=== PATIENT | female | born 1990 | race African-American/Black ===

== ENCOUNTER 2020-03-18 16:45 | Emergency (ER) | payer OTHER, SELFPAY ==
--- NOTE | ~2020-03-18 | XR_ITS ---
XR chest 1V portable DATE: 03/18/2020 18:32 INDICATION: Fever. Nausea. TECHNIQUE: Portable AP chest on 03/18/2020 at 1830 hours COMPARISON: 06/10/2015 AP chest FINDINGS: Normal heart size. No hilar or mediastinal enlargement. No pulmonary infiltrate or consolid ation, pleural effusion or pulmonary vascular congestion or pneumothorax. IMPRESSION: No active cardiopulmonary disease Reviewed, dictated and finalized at location A.
[2020-03-18 16:47] VITALS: BP 145/87; PULSE 80; RESP 18; TEMP 37.2; O2SAT 99
--- NOTE | 2020-03-18 18:16 | ED.GENADULT ---
HPI - General Adult General Chief complaint: Fever Stated complaint: body aches, fever Time Seen by Provider: 03/18/20 18:01 Source: patient History of Present Illness HPI narrative: Patient is 29 y/o female complaining fever since yesterday. She states that she has fever up to 104 today. She took Tylenol which helped with her fever. She also has some bodyache. She denies any cough, sorethroat or dysuria. She states that she started to have fever a few days after her started to have a fever. Related Data Home Medications Medication Instructions Recorded Confirmed No Home Medications 03/18/20 03/18/20 Allergies Allergy/AdvReac Type Severity Reaction Status Date / Time No Known Allergies Allergy Verified 03/18/20 16:51 Review of Systems Constitutional: Constitutional: Denies chills, Reports fever(s), Denies headache(s) and Denies weakness Eyes: Eyes: Denies blurry vision ENT: Denies headache(s) and Denies neck pain Cardiovascular: Cardiovascular: Denies chest pain and Denies dyspnea Respiratory: Respiratory: Denies cough and Denies dyspnea Gastrointestinal: Gastrointestinal: Denies abdominal pain, Denies diarrhea, Denies nausea and Denies vomiting Genitourinary: Genitourinary: Denies hematuria and Denies dysuria Musculoskeletal: Musculoskeletal: Reports as per HPI, Denies back pain, Denies neck pain and Reports other (myalgia) Neurologic: Denies headache(s) and Denies weakness Exam Const: General: no acute distress and well developed Orientation/consciousness: oriented to person, oriented to place, oriented to time and patient oriented x3 HENMT: Head: normocephalic Ears: external ears normal General nose exam: Normal external nose present Eyes: General: appearance normal, both eyes and all related structures Conjunctivae: conjunctivae normal Neck: Neck: normal visual inspection and full ROM Chest: Chest palpation & inspection: normal inspection of the chest and no tenderness Resp: Effort & Inspection: normal respiratory effort Auscultation: clear to auscultation bilaterally Cardio: Rate: regular rate Rhythm: regular rhythm GI: GI Palp: No abdominal tenderness and Yes Soft to palpation Skin: General skin exam: normal color and turgor normal Neuro: General: oriented to person, oriented to place, oriented to time and patient oriented x3 Cognition (Neuro): normal cognition Extrem: General: normal to inspection, full ROM and no pedal edema Psych: Appearance: grossly normal Mental Status: mental status grossly normal Affect: normal affect Course Reevaluation(s) Reevaluation #1: Offered patient COVID testing, but patient declined. Date: 03/18/20 Vital Signs Vital signs: Vital Signs Temperature 37.2 C 03/18/20 16:47 Pulse Rate 80 03/18/20 16:47 Respiratory Rate 18 03/18/20 16:47 Blood Pressure 145/87 H 03/18/20 16:47 Pulse Oximetry 99 03/18/20 16:47 Temperature 37.2 C 03/18/20 16:47 Pulse Rate 78 03/18/20 20:03 Respiratory Rate 18 03/18/20 20:03 Blood Pressure 137/82 03/18/20 20:03 Pulse Oximetry 100 03/18/20 20:03 Medical Decision Making Vital Signs Vital Signs: Vital Signs Temperature 37.2 C 03/18/20 16:47 Pulse Rate 80 03/18/20 16:47 Respiratory Rate 18 03/18/20 16:47 Blood Pressure 145/87 H 03/18/20 16:47 Pulse Oximetry 99 03/18/20 16:47 Temperature 37.2 C 03/18/20 16:47 Pulse Rate 78 03/18/20 20:03 Respiratory Rate 18 03/18/20 20:03 Blood Pressure 137/82 03/18/20 20:03 Pulse Oximetry 100 03/18/20 20:03 Lab Data Result diagrams: 03/18/20 18:39 03/18/20 18:39 Labs: Lab Results 03/18/20 03/18/20 03/18/20 Range/Units 18:32 18:39 18:39 WBC 4.0 L (4.5-10.0) K/mm3 RBC 4.30 (4.2-5.4) M/mm3 Hgb 12.5 (12.0-15.0) g/dL Hct 38.4 (37.0-47.0) % MCV 89.3 (80-100) fl MCH 29.1 (26-34) pg MCHC 32.6 (32-36) g/dl RDW 12.4 (11.5-14
[2020-03-18 18:42] LABS: Add Urine Microscopic? YES; Appearance Urine Clear (Clear); Bilirubin Urine Negative (Negative); Blood Urine Negative (Negative); Color Urine Yellow (Yellow); Glucose Urine UA Negative (Negative); Ketones Urine Negative (Negative); Leukocyte Esterase Ur Trace LEU/UL (Negative); Mucus Urine Rare /lpf; Nitrate Urine Negative (Negative); Protein Urine Negative (Negative); RBC Urine 0-2 /hpf (0-2); Specific Grav Ur 1.025 (1.001-1.035); Squamous Epithelial Cell Urine Many /hpf (Few); Urobilinogen Urine Negative mg/dL (<2.0); WBC Urine 0-3 /hpf
[2020-03-18 18:44] LABS: Basophils Percent Auto 0.2 % (0.2-1.2); Eosinophils Percent Auto 0.2 % (0-4.4); Hematocrit 38.4 % (37.0-47.0); Hemoglobin 12.5 g/dL (12.0-15.0); Immature Granulocyte Absolute 0.01 K/mm3 (0.00-0.031); Immature Granulocyte Percent A 0.2 % (0-0.5); Lymphocytes Absolute Auto 0.73 K/mm3 (0.9-3.2); Lymphocytes Percent Auto 18.2 % (18.3-44.2); Mean Corpuscular HGB Conc 32.6 g/dl (32-36); Mean Corpuscular Hemoglobin 29.1 pg (26-34); Mean Corpuscular Volume 89.3 fl (80-100); Mean Platelet Volume 11.1 fl (7.4-10.4); Monocytes Absolute Auto 0.5 K/mm3 (0.1-0.6); Monocytes Percent Auto 12.2 % (2.6-8.5); Neutrophils Absolute Auto 2.8 K/mm3 (1.3-6.7); Platelet Count Result 188 k/mm3 (150-375); Red Cell Distribution Width 12.4 % (11.5-14.5)
[2020-03-18 18:55] LABS: Alanine Aminotransferase 16 U/L (4-35); Albumin Level 4.2 g/dL (3.5-5.1); Alkaline Phosphatase 93 U/L (38-126); Aspartate Amino Transferase 22 U/L (14-36); Bilirubin,Total 0.3 mg/dL (0.2-1.3); Blood Urea Nitrogen 13 mg/dL (7-17); Calcium 8.8 mg/dL (8.4-10.2); Carbon Dioxide 23 mmol/L (22-30); Chloride 105 mmol/L (98-107); Estimated CRCL calculation 101 ml/min; Estimated Glomerular Filt Rate > 60; Glucose 83 mg/dL (65-105); Sodium 138 mmol/L (137-145)
[2020-03-18 20:03] VITALS: BP 137/82; PULSE 78; RESP 18; O2SAT 100
== END 2020-03-18 20:04 | disposition home or self-care (01) ==
PROVIDERS: Emergency Provider Emergency Medicine
DX: R50.9 Fever, unspecified (principal)
CPT/HCPCS: 36415; 71045; 80053; 81001; 81025; 85025; 99283

== ENCOUNTER 2020-03-25 09:42 | Emergency (ER) | payer OTHER, SELFPAY ==
--- NOTE | ~2020-03-25 | XR_ITS ---
EXAMINATION: XR chest 1V portable DATE: 03/25/2020 10:18 INDICATION: Cough and shortness of breath. TECHNIQUE: A single frontal view of the chest was obtained. COMPARISON: Chest single view 03/18/2020, CT abdomen and pelvis 09/11/2018 FINDINGS: There are mild airspace opacities in left mid and lower lung zones. No pleural effusion or pneumothorax. The heart size is normal. IMPRESSION: 1. Mild airspace opacities in left mid and lower lung zones suspicious for atypical pneumonia. Reviewed, dictated and finalized at location A. IMPRESSION: 1. Mild airspace opacities in left mid and lower lung zones suspicious for atyp ical pneumonia.
--- NOTE | 2020-03-25 09:55 | ECG_ITS ---
Measurements Intervals [place] Rate: 82 P: 38 HI: 158 QRS: -10 QRSD: 96 T: -1 QT: 348 QTc: 409 Interpretive Statements SINUS RHYTHM POOR R WAVE PROGRESSION, ANTERIOR LEADS BORDERLINE T WAVE ABNORMALITY- ANT/INF LEADS BASELINE WANDER- V1, V4-V6 BORDERLINE ECG Electronically Signed On 03-25-2020 12:50:26 CDT by Bennett Penny D.O.
[2020-03-25 09:56] VITALS: BP 133/89; PULSE 88; RESP 22; TEMP 37.4; O2SAT 98
[2020-03-25 10:19] LABS: Basophils Percent Auto 0.2 % (0.2-1.2); Hematocrit 42.7 % (37.0-47.0); Hemoglobin 13.6 g/dL (12.0-15.0); Immature Granulocyte Absolute 0.01 K/mm3 (0.00-0.031); Immature Granulocyte Percent A 0.2 % (0-0.5); Lymphocytes Absolute Auto 1.18 K/mm3 (0.9-3.2); Lymphocytes Percent Auto 28.9 % (18.3-44.2); Mean Corpuscular HGB Conc 31.9 g/dl (32-36); Mean Corpuscular Hemoglobin 28.8 pg (26-34); Mean Corpuscular Volume 90.3 fl (80-100); Mean Platelet Volume 10.5 fl (7.4-10.4); Monocytes Absolute Auto 0.2 K/mm3 (0.1-0.6); Monocytes Percent Auto 4.6 % (2.6-8.5); Neutrophils Absolute Auto 2.7 K/mm3 (1.3-6.7); Neutrophils Percent Auto 66.1 % (45.5-73.1); Platelet Count Result 185 k/mm3 (150-375); Red Blood Count 4.73 M/mm3 (4.2-5.4); White Blood Count 4.1 K/mm3 (4.5-10.0)
[2020-03-25] MEDS: SODIUM CHLORIDE 0.9% IV 1,000 ML 999 ML IV CONT (10:45)
[2020-03-25 10:47] LABS: Blood Urea Nitrogen 9 mg/dL (7-17); Calcium 8.8 mg/dL (8.4-10.2); Carbon Dioxide 28 mmol/L (22-30); Chloride 103 mmol/L (98-107); Estimated CRCL calculation 128 ml/min; Estimated Glomerular Filt Rate > 60; Glucose 109 mg/dL (65-105); Potassium 4.1 mmol/L (3.4-5.0); Sodium 139 mmol/L (137-145)
[2020-03-25 11:22] LABS: Lactic Acid Reflex 0.8 mmol/L (0.7-2.1)
[2020-03-25 11:30] VITALS: BP 143/95; PULSE 64; RESP 18; O2SAT 98
--- NOTE | 2020-03-25 11:47 | PC.NURSE ---
Pt did 15 jumping jacks with pulse ox on. Pt did well. maintained o2 above 94%.
--- NOTE | 2020-03-25 11:54 | ED.GENADULT ---
HPI - General Adult General Chief complaint: Shortness of Breath/Dyspnea Stated complaint: SOB Time Seen by Provider: 03/25/20 10:12 Source: patient, family and old records reviewed Mode of arrival: ambulatory Limitations: no limitations History of Present Illness HPI narrative: Patient is a 29-year-old female who presents to emergency department for evaluation of upper respiratory symptoms noting she was seen a week ago along with her for upper respiratory symptoms to include fever was diagnosed with viral syndrome. Patient's improved and is feeling much better. Patient notes she has had a few times where she has vomited and has had some loose stools. Patient notes her main reason for returning is feeling more short of breath at rest and with activity with productive cough. Patient denies any immunocompromise. Patient notes that her fever has been responding to Tylenol. Patient presents per private vehicle in no distress denying any pain Related Data Allergies Allergy/AdvReac Type Severity Reaction Status Date / Time No Known Allergies Allergy Verified 03/25/20 10:01 Review of Systems Review of Systems: All systems reviewed & are unremarkable except as noted in HPI and below PMFSH Social History Social History (Updated 03/25/20 @ 11:57 by Dakotah Barroso PA-C) Smoking status: Never smoker Gender identity (if verbalized by the patient): Female Exam Narrative: Exam Narrative: GENERAL: Well-appearing, well-nourished, and in no acute distress. HEAD: Normocephalic, atraumatic. EYES: PERRLA and EOMI. ENT: Nares clear, no rhinorrhea or epistaxis. Mucous membranes moist. Oropharynx without tonsillar hypertrophy exudate or other lesions. Bilateral TMs pearly guerrero nonbulging NECK: Supple. No adenopathy or masses. CHEST: Clear to auscultation. No respiratory distress. No wheezes rales or rhonchi. Slight crackles in the lung bases HEART: Regular rate and rhythm. No murmur heard. EXTREMITIES: Normal range of motion. No edema. SKIN: Warm, dry, no rash. NEURO: No focal deficits. Alert and oriented x3. PSYCH: Normal mood and affect. Course Course Emergency Course: Patient aware of case findings treatment plan and diagnosis agreeing to follow-up with primary care as instructed patient was given fluids in the emergency department also provided with an MDI will be sent home with an inhaler. Patient will be treated for atypical pneumonia was also tested for COVID and will self quarantine until results are given. Reevaluation(s) Reevaluation #1: Patient resting comfortably in the room in no distress aware of case findings treatment plan and diagnosis was able to physically exert without becoming hypoxic. Patient made aware of plan for primary care follow-up also given instructions on reasons to return. Date: 03/25/20 Time: 11:58 Vital Signs Vital signs: Vital Signs Temperature 99.4 F 03/25/20 09:56 Pulse Rate 88 03/25/20 09:56 Respiratory Rate 22 H 03/25/20 09:56 Blood Pressure 133/89 03/25/20 09:56 Pulse Oximetry 98 03/25/20 09:56 Temperature 99.4 F 03/25/20 09:56 Pulse Rate 64 03/25/20 11:30 Respiratory Rate 18 03/25/20 11:30 Blood Pressure 143/95 H 03/25/20 11:30 Pulse Oximetry 98 03/25/20 11:30 Medical Decision Making [facility] Narrative Medical decision making narrative: Patient in the room found to have pneumonia with normal vital signs no high risk changes in the blood work will be treated for atypical pneumonia with a Z-Alexandro and inhaler provided with strict reasons to return also advised to self quarantine until she has her COVID-19 test. Vital Signs Vital Signs: Vital Signs Temperature 99.4 F 03/25/20 09:56 Pulse Rate 88 03/25/20 09:56 Respiratory Rate 22 H 03/25/20 09:56 Blood Pressure 133/89 03/25/20 09:56 Pulse Oximetry 98 03/25/20 09:56 Temperature 99.4 F 03/25/20 09:56 Pulse Rate 64 03/25/20 11:30 Respiratory Rate 18
[2020-03-25 12:44] VITALS: BP 132/88; PULSE 72; RESP 18; O2SAT 97
[2020-03-25 19:19] LABS: SARS-CoV-2 RNA PCR Positive
== END 2020-03-25 12:46 | disposition home or self-care (01) ==
PROVIDERS: Emergency Medicine Emergency Medical Services; Emergency Provider Emergency Medicine
DX: U07.1 COVID-19 (principal); J12.89 Other viral pneumonia; R94.31 Abnormal electrocardiogram [ECG] [EKG]
CPT/HCPCS: 36415; 71045; 80048; 83605; 85025; 87040; 87635; 93005; 96361; 96374; 99284; C9803; J0131; J7030; U0003